=== PATIENT | male | born 1995 | race Caucasian/White ===

== ENCOUNTER 2016-09-28 01:23 | Emergency (ER) | payer BC ==
[2016-09-28 02:37] LABS: Urine Bilirubin Negative (Negative); Urine Glucose Negative (Negative); Urine Nitrite Negative (Negative)
[2016-09-28 02:48] LABS: Benzodiazepine Urine Screen None Detected (None Detect)
[2016-09-28 02:54] LABS: Hematocrit 48 % (42-52); Hemoglobin 16.4 g/dl (14.0-18.0); Mean Corpuscular HGB Conc 34 g/dl (31-36); Mean Corpuscular Hemoglobin 31 pg (27-31); Mean Corpuscular Volume 91 fL (80-94); Mean Platelet Volume 8 um3 (7.4-10.4); Red Blood Count 5.29 10^6/ul (4.0-5.4); Red Cell Distribution Width 13 % (10.5-15)
[2016-09-28 03:11] LABS: ALT 29 U/L (7-52); AST 68 U/L (13-39); Albumin 5.3 g/dL (3.2-5.2); Alkaline Phosphatase 89 U/L (34-104); Anion Gap 8 mmol/L (2-11); BUN/Creatinine Ratio 15.6 (8-20); Blood Urea Nitrogen 14 mg/dL (6-24); CO2 Carbon Dioxide 25 mmol/L (22-32); Calcium 10.3 mg/dL (8.6-10.3); Chloride 105 mmol/L (101-111); EGFR African American 138.4 (>60); EGFR Non-African American 107.6 (>60); Glucose 97 mg/dL (70-100); Potassium 4.1 mmol/L (3.5-5.0); Sodium 138 mmol/L (133-145); Total Protein 8.3 g/dL (6.4-8.9)
[2016-09-28 03:12] LABS: Acetaminophen < 15 mcg/mL; Alcohol 40 mg/dL (<10); Salicylate < 2.50 mg/dL (<30)
[2016-09-28 03:21] LABS: TSH (Thyroid Stimulating Horm) 1.11 mcIU/mL (0.34-5.60)
[2016-09-28 04:16] VITALS: BP 127/67
--- NOTE | 2016-09-28 05:59 | ED ---
Elva Vargas Matthew, scribed for Rafita Guajardo on 09/28/16 at 0214 . Altered Mental Status - HPI Summary HPI Summary: A 20 y/o male presents to the ED with altered mental status. The patient states that he feels depressed and that he's not feeling well. The patient also states that he was unable to move his body for a short period tonight, which has since resolved on its own. He drank some vodka [employer]OL[employer]. He denies suicidal ideation. FHx includes depression. - History Of Current Complaint Chief Complaint: EDMentalHealth Stated Complaint: MHE Time Seen by Provider: 09/28/16 01:57 Hx Obtained From: Patient Onset/Duration: Still Present Timing: Constant Severity Initially: Moderate Severity Currently: Moderate Aggravating Factor(s): Unknown Alleviating Factor(s): Unknown Associated Signs And Symptoms: Positive: Recently Depressed - Allergies/Home Medications Allergies/Adverse Reactions: Allergies Allergy/AdvReac Type Severity Reaction Status Date / Time No Known Allergies Allergy Verified 09/28/16 01:33 PMH/Surg Hx/FS Hx/Imm Hx Previously Healthy: Yes Endocrine/Hematology History: Denies: Hx Diabetes Infectious Disease History: No Infectious Disease History: Denies: Traveled Outside the [place] in Last 30 Days - Family History Family History: FHx of depression - Social History Occupation: Student Alcohol Use: Occasionally Hx Substance Use: No Substance Use Type: Reports: None Hx Tobacco Use: No Smoking Status (MU): Never Smoked Tobacco Review of Systems Constitutional: Negative Eyes: Negative ENT: Negative Cardiovascular: Negative Respiratory: Negative Gastrointestinal: Negative Genitourinary: Negative Musculoskeletal: Negative Skin: Negative Neurological: Negative Positive: Depressed All Other Systems Reviewed And Are Negative: Yes Physical Exam Triage Information Reviewed: Yes Vital Signs On Initial Exam: Initial Vitals Temp Pulse Resp BP Pulse Ox 98.8 F 94 16 147/65 100 09/28/16 01:25 09/28/16 01:25 09/28/16 01:25 09/28/16 01:25 09/28/16 01:25 Vital Signs Reviewed: Yes Appearance: Positive: Well-Appearing, No Pain Distress Skin: Positive: Warm, Skin Color Reflects Adequate Perfusion, Dry Head/Face: Positive: Normal Head/Face Inspection Eyes: Positive: EOMI, LACEY ENT: Positive: Normal ENT inspection Neck: Positive: Supple, Nontender Cardiovascular: Positive: RRR Abdomen Description: Positive: Nontender, Soft Bowel Sounds: Positive: Present Musculoskeletal: Positive: Normal, Strength/ROM Intact Neurological: Positive: Normal, Sensory/Motor Intact, Alert, Oriented to Person Place, Time Psychiatric: Positive: Depressed, Other - Flat Affect Diagnostics - Vital Signs Vital Signs Temp Pulse Resp BP Pulse Ox 09/28/16 01:25 98.8 F 94 16 147/65 100 - Laboratory Result Diagrams: 09/28/16 02:38 09/28/16 02:38 Lab Statement: Any lab studies that have been ordered have been reviewed, and results considered in the medical decision making process. Altered Mental Statu Course/Dx - Course Assessment/Plan: A 20 y/o male presents to the ED with depression. He also presented to the ED with alcohol intoxication. He denies suicidal ideation. The patient is medically cleared for MHE. - Diagnoses Discharge Diagnoses: Depression Discharge - Discharge Plan Condition: Stable Disposition: PSYCHIATRIC FACILITY-[facility] [place] The documentation as recorded by the Elva castro Matthew accurately reflects the service I personally performed and the decisions made by , Rafita Guajardo.
--- NOTE | 2016-11-16 08:32 | PN ---
Sania Vargas SooYoung, scribed for Dallas Portillo MD on 09/28/16 at 0910 . Progress Note - Progress Note Note: Sign out from Dr. Guajardo. After MHE, pt is cleared for d/c home. Pt condition is stable. Pt to follow-up with counselor at [facility], as in D/C instructions. Dx: anxiety. The documentation as recorded by the scribSania man SooYoung accurately reflects the service I personally performed and the decisions made by me, Dallas Portillo MD.
== END 2016-09-28 09:44 | disposition home or self-care (01) ==
LOC: ED 01:23
DX: F32.9 Major depressive disorder, single episode, unspecified (principal)
CPT/HCPCS: 36415; 80053; 80307; 80320; 80329; 81003; 84443; 85025; 99284; G0480